=== PATIENT | female | born 2000 | race Hispanic/Latino ===

== ENCOUNTER 2019-03-12 12:14 | Emergency (ER) | payer OTHER ==
[~2019-03-12] VITALS: Ht 157.5 cm; Wt 72.0 kg
[~2019-03-12 12:14] MED LIST: AMOXICILLIN875 MG PO; FLUTICASONE50 MCG; NASONEX50 MCG/AC NAB; POLYTRIM OU; SINGLAIR 4 MG TA4 MG PO; TESSALON PER100 MG PO; ZPAK PO; [UNRECOGNIZED DRUG - OTHER] PO
[2019-03-12 16:25] VITALS: BP 125/72
== END 2019-03-12 16:25 | disposition home or self-care (01) | DRG 556 ==
LOC: ED 12:14
DX: M79.18 Myalgia, other site (principal); R51 Headache; S60.511A Abrasion of right hand, initial encounter; S40.812A Abrasion of left upper arm, initial encounter; V49.40XA Driver injured in collision with unspecified motor vehicles in traffic accident, initial encounter; W22.11XA Striking against or struck by driver side automobile airbag, initial encounter

== ENCOUNTER 2024-07-16 13:19 | Emergency (ER) | payer SELFPAY ==
[~2024-07-16] VITALS: Ht 157.5 cm; Wt 63.5 kg
[2024-07-16 13:26] VITALS: BP 136/67
[2024-07-16 13:49] LABS: BASO% 0.4 % (0-3); EOS% 3.2 % (0-8); HEMOGLOBIN 14.4 g/dl (12.0-16.0); IMMATURE GRANULOCYTES 0.4 % (0.0-5.0); LYMPH% 28.9 % (15-41); MEAN CORPUSCULAR HGB 29.1 pG CALC (26.0-32.0); MEAN CORPUSCULAR HGB CONC 32.7 g/dL CAL (32.0-36.0); MONO% 6.8 % (2-13); NEUT# 6.42 thou/uL (2.00-7.15); NEUT% 60.3 % (42-76); RED BLOOD COUNT 4.95 mill/uL (4.20-5.60); RED CELL DISTRI WIDTH 12.1 % (11.5-15.5)
[2024-07-16 13:50] LABS: MEAN CELL VOLUME 88.9 fL CALC (80.0-100.0)
[2024-07-16 14:11] VITALS: BP 115/66
[2024-07-16 14:41] VITALS: BP 131/70
[2024-07-16 15:05] VITALS: BP 131/70
== END 2024-07-16 15:15 | disposition home or self-care (01) | DRG 761 ==
LOC: ED 13:19
PROVIDERS: Family Medicine
DX: N93.9 Abnormal uterine and vaginal bleeding, unspecified (principal)